=== PATIENT | female | born 1970 | race African-American/Black ===

== ENCOUNTER 2024-10-08 15:16 | Emergency (ER) | payer MEDICAID ==
[~2024-10-08] VITALS: Ht 170.2 cm; Wt 169.0 kg
[2024-10-08 15:30] VITALS: BP 107/75; PULSE 82; RESP 18; TEMP 97.6; O2SAT 99
--- NOTE | 2024-10-08 15:38 | Physician Documentation ---
History of Present Illness ~ Stated Complaint: "INSTRUMENT STUCK ON FINGER" Time Seen by MD: 15:32 OK to notify your PCP?: Yes Source: patient Mode of Arrival: POV Exam Limitations: no limitations HPI 53 y/o right handed female with right 5th digit has a ring as well as pliers stuck on finger x1hour. She states that the ring felt tight so she got pliers and tried to remove the ring but then the pliers got stuck. She states her finger is throbbing and starting to swell. Past Medical History Past Medical History: No Pertinent History Review of Systems All Other Systems at this time: Reviewed and Negative Physical Exam Physical Exam General Appearance: Alert, WD/WN. NAD. HEENT: NCAT, PERRL, EOMI. Neck: Supple, trachea midline. Cardiovascular: RRR. No m/r/g. Lungs: CTAB. Breathing unlabored Extremities: RIGHT 5TH DIGIT RING STUCK ON FINGER ALONG WITH PLIERS. SKIN INTACT. Skin: Warm/dry, normal color Neurological: Alert and oriented x4, normal gait. Psychiatric: Affect congruent with mood. Procedures Procedures SHEERS USED TO REMOVE THE RING AND PLIERS FROM THE FINGER. SKIN INTACT, NO ERYTHEMA, NO EDEMA. Medical Decision Making Finger Diff Dx:Considerations: Include: Abrasion, Cellulitis, Contusion, Dislocation, Fracture, Hematoma, Laceration, Neurovascular injury, Open fracture, Subungual hematoma Departure Time of Disposition: 15:36 Disposition: 01 HOME / SELF CARE / HOMELESS Impression: Primary Impression: Tight ring on finger Condition: Stable Discharge Instructions: General Discharge Instructions Additional Instructions: RING REMOVED FROM FINGER ALONG WITH PLIERS WHICH WE RETURNED TO YOU. THANK YOU FOR COMING TO THE ER BEFORE THIS GOT WORSE! Referrals: NO PRIMARY CARE PROVIDER (PCP) Education Educated: Patient Educated regarding: diagnosis, treatment, need for follow up Signature Scribe Signature: X Attestation: SANCHEZ MCCARTY October 08, 2024 15:38
== END 2024-10-08 15:41 | disposition home or self-care (01) ==
LOC: ER 15:18
DX: S60.446A External constriction of right little finger, initial encounter (principal); W49.04XA Ring or other jewelry causing external constriction, initial encounter; Y93.89 Activity, other specified; Y92.89 Other specified places as the place of occurrence of the external cause; Y99.8 Other external cause status
CPT/HCPCS: 99284